=== PATIENT | female | born 1990 | race Asian ===

== ENCOUNTER 2017-06-13 00:25 | Emergency (ER) | payer OTHER ==
[~2017-06-13] VITALS: Ht 154 cm; Wt 55.1 kg
[2017-06-13 00:27] VITALS: TEMP 97.9
[2017-06-13 01:13] LABS: BASO % 0.3 % (0.0-2.0); EOS # 0.1 (0.0-0.7); EOS % 0.6 % (0-4.0); GRAN # 9.6 (1.4-6.5); GRAN % 75.8 % (42.2-75.2); LYMPH # 2.1 (1.2-3.4); LYMPH % 16.7 % (20.0-51.0); MEAN CELL VOLUME 87 fl (80.0-100.0); MEAN CORPUSCULAR HGB CONC 35 g/dl (33.0-37.0); MEAN PLATELET VOLUME 10.2 fl (7.4-10.4); MONO # 0.8 (0.1-0.6); MONO % 6.1 % (1.7-9.3); PLATELET COUNT 230 K/mm3 (130-400); RED BLOOD COUNT 3.78 M/mm3 (4.10-5.30); REDCELL DISTRIBUTION WIDTH-CV 12.3 % (11.5-14.5); WHITE BLOOD COUNT 12.7 K/mm3 (4.8-10.8)
[2017-06-13 01:15] LABS: HEMATOCRIT 32.8 % (37.0-47.0); HEMOGLOBIN 11.6 g/dl (12.5-16.0); MEAN CORPUSCULAR HEMOGLOBIN 31 pg (27.0-31.0)
[2017-06-13 03:08] VITALS: BP 106/75; PULSE 76
== END 2017-06-13 03:06 | disposition home or self-care (01) ==
LOC: COL.ER 00:25
PROVIDERS: Emergency Medicine
DX: O03.9 Complete or unspecified spontaneous abortion without complication (principal); Z67.20 Type B blood, Rh positive

== ENCOUNTER 2019-09-25 06:41 | Inpatient (IN) | payer OTHER ==
[2019-09-25] VITALS (67 sets, daily range): BP systolic 96–135; BP diastolic 55–96; PULSE 59–93; TEMP 97.6–98.5
[~2019-09-25] VITALS: Ht 152.4 cm; Wt 62.7 kg
--- NOTE | 2019-09-25 06:50 | NUR ---
PATIENT HERE TO LR5 FOR INDUCTION. PATIENT DRESSED IN GOWN. ON EFM, VITALS OBTAINED, ASSESMENT COMPLETE, CONSENTS SIGNED, IV STARTED,SVE, QUESTIONS ANSWERED. PATIENT HERE WITH
[2019-09-25] MEDS ORDERED: PRENATAL (07:01)
[2019-09-25 08:09] LABS: BASO % 0.3 % (0.0-2.0); EOS # 0.1 (0.0-0.7); EOS % 0.8 % (0-4.0); GRAN # 5.1 (1.4-6.5); GRAN % 54.6 % (42.2-75.2); HEMOGLOBIN 12.2 g/dl (12.5-16.0); LYMPH # 3.3 (1.2-3.4); LYMPH % 35.4 % (20.0-51.0); MEAN CELL VOLUME 94 fl (80.0-100.0); MEAN CORPUSCULAR HEMOGLOBIN 32 pg (27.0-31.0); MEAN CORPUSCULAR HGB CONC 35 g/dl (33.0-37.0); MEAN PLATELET VOLUME 11.7 fl (7.4-10.4); MONO # 0.7 (0.1-0.6); PLATELET COUNT 194 K/mm3 (130-400); RED BLOOD COUNT 3.76 M/mm3 (4.10-5.30); REDCELL DISTRIBUTION WIDTH-CV 13.7 % (11.5-14.5)
[2019-09-25 08:15] LABS: HEMATOCRIT 35.3 % (37.0-47.0)
--- NOTE | 2019-09-25 11:48 | NUR ---
LATE DECELERATION NOTED. PATIENT TURNED WR.
--- NOTE | 2019-09-25 17:48 | NUR ---
LATE DECELERATION NOTED. PATIENT IN LL
--- NOTE | 2019-09-25 21:00 | NUR ---
REPOSITIONED TO RIGHT LATERAL WITH LEG IN THE STIRRUP.
--- NOTE | 2019-09-25 22:00 | NUR ---
PT REPOSITIONED INTO LEFT LATERAL WITH LEG IN STIRRUP.
--- NOTE | 2019-09-25 23:15 | NUR ---
MINIMAL VARIABILITY NOTED OVER THE LAST 15 MINUTES SINCE POSITION CHANGED AT 2300. REPOSITIONED AT THIS TIME TO SEMIFOWLERS WITH LEFT WEDGE.
--- NOTE | 2019-09-25 23:35 | NUR ---
CONTINUED MINIMAL VARIABILITY NOTED NOW WITH RECURRENT SUBTLE LATE DECELERATIONS. PT REPOSTIONED INTO SEMIFOWLERS WITH RIGHT WEDGE AND PEANUT BALL.
[2019-09-26] VITALS (42 sets, daily range): BP systolic 87–148; BP diastolic 49–97; PULSE 61–106; TEMP 97.2–99.3
--- NOTE | 2019-09-26 05:34 | NUR ---
0516- DR. SUMNER IN ROOM TO EVALUATE, SVE PERFORMED, UNCHANGED. DR SUMNER DISCUSSES NEED FOR C/S DUE TO NO CERVICAL CHANGE. PT AND SPOUSE VERBALIZE UNDERSTANDING AND AGREE TO C/S AT 0520. 0528- MONS CLIPPED, SCRUB COMPLETED. 0529- 0532 TRACING MATERNAL HEARTBEAT WHILE SCRUB PERFORMED. 0532- US ON FHT'S IN THE 130'S BUT IMMEDIATELY DECREASES INTO THE 60'S, SVE PERFORMED BY THIS NURSE, UNCHANGED SVE, DR. SUMNER INTO THE ROOM. REQUESTS TO GO TO OR NOW AND HE WILL US IN THE OR FOR FHT'S. 0534- OFF MONITORS. 0535- IN OR, DR. SUMNER PERFORMS US, STATES HEART TONES IN THE 90'S. 0546- PRIMARY C/S PERFORMED FOR FAILURE TO PROGRESS.
--- NOTE | 2019-09-26 07:00 | NUR ---
ABDOMINAL BINDER PLACED ON PATIENT
[2019-09-27 02:15] VITALS: BP 104/67; PULSE 81; TEMP 98.2
[2019-09-27 08:00] VITALS: BP 86/56; PULSE 72; TEMP 97.3
[2019-09-27 09:20] LABS: HEMATOCRIT 27.8 % (37.0-47.0); HEMOGLOBIN 9.7 g/dl (12.5-16.0)
[2019-09-27 16:55] VITALS: BP 96/60; PULSE 74; TEMP 97.7
[2019-09-27 21:14] VITALS: BP 97/53; PULSE 78; TEMP 97.7
[2019-09-28 08:00] VITALS: BP 96/55; PULSE 68; TEMP 98
[2019-09-28 16:09] VITALS: BP 100/52; PULSE 60; TEMP 97.8
[2019-09-28 20:40] VITALS: BP 99/61; PULSE 69; TEMP 98.2
[2019-09-29 08:12] VITALS: BP 116/78; PULSE 78; TEMP 97.6
[2019-09-29] MEDS ORDERED: IBU600 MG PO (08:12)
[2019-09-29] MEDS ORDERED: FERRO-TIME325 MG PO (08:12)
[2019-09-29] MEDS ORDERED: PERCOCET 325 MG1 TA2 PO (08:12)
== END 2019-09-29 14:00 | disposition home or self-care (01) | DRG 787 ==
LOC: OB 06:41 → LDR 06:41 → OB 09-26 07:05
PROVIDERS: ADMIT Obstetrics & Gynecology
PROC: 10907ZC Drainage of Amniotic Fluid, Therapeutic from Products of Conception, Via Natural or Artificial Opening (ICD-10-PCS; principal; 2019-09-26)
PROC: 10D00Z1 Extraction of Products of Conception, Low, Open Approach (ICD-10-PCS; 2019-09-26)
DX: O48.0 Post-term pregnancy (principal); O23.43 Unspecified infection of urinary tract in pregnancy, third trimester; Z3A.41 41 weeks gestation of pregnancy; O34.13 Maternal care for benign tumor of corpus uteri, third trimester; D25.9 Leiomyoma of uterus, unspecified; O62.0 Primary inadequate contractions; O90.81 Anemia of the puerperium; D64.9 Anemia, unspecified; Z37.0 Single live birth
CPT/HCPCS: J0690; J1885; J2370; J2400; J2405; J2590; J7120

== ENCOUNTER 2023-11-14 07:01 | Inpatient (IN) | payer BC ==
[~2023-11-14] VITALS: Ht 162.6 cm; Wt 60.5 kg
[2023-11-14] VITALS (18 sets, daily range): BP systolic 101–126; BP diastolic 55–84; PULSE 65–88; TEMP 97.9–98.3
[~2023-11-14 07:01] MED LIST: FERRO-TIME325 MG PO; IBU600 MG PO; LR 1,000 ML IV SCH; PERCOCET 325 MG1 TA2 PO; PRENATAL
--- NOTE | 2023-11-14 07:05 | NUR ---
0705PT AMBULATORY TO UNIT WITH SPOUSE AND SON. PT CHANGED INTO CLEAN GOWN. COMFORTABLE IN BED. 0710HUSBAND LEFT TO DROP SON OFF AT DAYCARE. 0715THIS RN AT BEDSIDE TO PLACE EFM AND TOCO. EFM TRACING CAT I. PT VITAL SIGNS STABLE. 0720POC DISCUSSED WITH PT. PT VERBALIZES UNDERSTANDING. 0725IV STARTED AT THIS TIME. LABS DRAWN AND SENT TO LAB. 0730FIRST BAG OF IVF STARTED.
[2023-11-14] MEDS ORDERED: OSCAL 500 TAB500 MG PO (07:45)
[2023-11-14] MEDS ORDERED: LR 1,000 ML IV SCH (08:00)
[2023-11-14] MEDS ORDERED: Ondansetron 4 MG/2 ML VIAL IV SCH (08:00)
[2023-11-14 08:14] LABS: BASO % 0.3 % (0.0-2.0); EOS # 0.1 K/mm3 (0.0-0.7); EOS % 1.1 % (0.0-4.0); GRAN # 5.4 K/mm3 (1.4-6.5); GRAN % 56.3 % (42.2-75.2); HEMOGLOBIN 12.8 g/dl (12.5-16.0); LYMPH # 3.1 K/mm3 (1.2-3.4); LYMPH % 32.3 % (20.0-51.0); MEAN CELL VOLUME 94 fl (80.0-100.0); MEAN CORPUSCULAR HEMOGLOBIN 33 pg (27-31); MEAN CORPUSCULAR HGB CONC 35 g/dl (33.0-37.0); MEAN PLATELET VOLUME 10.7 fl (7.4-10.4); MONO # 0.8 K/mm3 (0.1-0.6); MONO % 8.7 % (1.7-9.3); PLATELET COUNT 193 K/mm3 (130-400); RED BLOOD COUNT 3.92 M/mm3 (4.10-5.30); REDCELL DISTRIBUTION WIDTH-CV 13.4 % (11.5-14.5)
[2023-11-14 08:15] LABS: HEMATOCRIT 36.7 % (37.0-47.0)
[2023-11-14] MEDS ORDERED: Phenylephrine 10 MG/ML VIAL ONE (08:40)
[2023-11-14] MEDS ORDERED: ePHEDrine 50 MG/ML VIAL ONE (08:40)
[2023-11-14] MEDS ORDERED: NS 10 ML IV ONE ×2 (08:44→09:18)
[2023-11-14] MEDS ORDERED: Ketorolac 30 MG/ML VIAL ONE (09:07)
[2023-11-14] MEDS ORDERED: dexAMETHasone 10 MG/ML VIAL ONE (09:18)
[2023-11-14] MEDS ORDERED: Magnes Hydrox (MOM) 80 MG/ML 30 ML CUP PO PRN (09:45)
[2023-11-14] MEDS ORDERED: Loratadine 10 MG TAB PO PRN (09:45)
[2023-11-14] MEDS ORDERED: Naloxone 0.4 MG/ML VIAL IV PRN (11:00)
[2023-11-14] MEDS ORDERED: Morphine 4 MG/ML VIAL IV PRN (11:00)
[2023-11-14] MEDS ORDERED: Acetaminophen 500 MG TAB PO SCH (11:00)
[2023-11-14] MEDS ORDERED: Ondansetron 4 MG/2 ML VIAL IV PRN (11:00)
[2023-11-14] MEDS ORDERED: oxyCODONE 5 MG TAB PO PRN (11:00)
[2023-11-14] MEDS ORDERED: LR 1,000 ML IV PRN (11:00)
[2023-11-14] MEDS ORDERED: Measles/Mumps/Rubella Virus Vaccine Live w Diluent 0.5 ML VIAL SQ SCH (11:00)
[2023-11-14] MEDS ORDERED: Ibuprofen 600 MG TAB PO SCH (15:38)
[2023-11-14] MEDS ORDERED: Sennosides/Docusate 8.6-50 MG TAB PO SCH (17:00)
[2023-11-14] MEDS ORDERED: traZODone 50 MG TAB PO PRN (21:00)
[2023-11-15 00:25] VITALS: BP 95/55; PULSE 70; TEMP 98.3
[2023-11-15 05:30] VITALS: BP 98/59; PULSE 73; TEMP 97.7
[2023-11-15 06:53] LABS: HEMATOCRIT 30.5 % (37.0-47.0); HEMOGLOBIN 10.8 g/dl (12.5-16.0)
[2023-11-15 07:30] VITALS: BP 104/67; PULSE 69; TEMP 97.9
[2023-11-15] MEDS ORDERED: Prenatal Vitamins/Iron/FA TAB PO SCH (09:00)
--- NOTE | 2023-11-15 09:54 | NUR ---
Initial visit; Patient smiled and shook her head "Yes" in acknowledgement of Blankbook Forwarder's visit who welcomed her and her new daughter and thanked her for choosing our Hospital.
[2023-11-15 21:30] VITALS: BP 100/67; PULSE 72; TEMP 98.1
[2023-11-16 06:45] VITALS: BP 103/66; PULSE 74; TEMP 98.4
[2023-11-16] MEDS ORDERED: ROXICODONE 55 MG/TAB PO (07:38)
[2023-11-16] MEDS ORDERED: TYLENOL 500MG500 MG PO (07:38)
== END 2023-11-16 11:30 | disposition home or self-care (01) | DRG 788 ==
LOC: OB 07:01
PROVIDERS: ADMIT Obstetrics & Gynecology
PROC: 10D00Z1 Extraction of Products of Conception, Low, Open Approach (ICD-10-PCS; principal; 2023-11-14)
DX: O34.211 Maternal care for low transverse scar from previous cesarean delivery (principal); Z3A.39 39 weeks gestation of pregnancy; Z37.0 Single live birth; O34.13 Maternal care for benign tumor of corpus uteri, third trimester; D25.9 Leiomyoma of uterus, unspecified; Z23 Encounter for immunization
CPT/HCPCS: J0665; J0690; J1100; J1885; J2371; J2405; J2765; J7120